=== PATIENT | female | born 1955 | race Caucasian/White ===

== ENCOUNTER 2017-11-09 20:38 | Inpatient (IN) | payer SELFPAY ==
[~2017-11-09] VITALS: Ht 157.5 cm; Wt 73.6 kg
[2017-11-09 20:43] VITALS: Ht 157.5 cm; Wt 73.6 kg
[2017-11-09 21:35] LABS: BASOPHIL % 0.4 % (0-2); PLATELET COUNT 340 x10^3mcL (130-400)
[2017-11-09 21:41] LABS: UA SPECIFIC GRAVITY 1.015 (1.005-1.035); microscopic required? YES; urine erythrocyte TRACE (NEGATIVE)
[2017-11-09 21:49] LABS: CALCIUM 8.9 mg/dL (8.5-10.1); CARBON DIOXIDE 27.8 mmol/L (21-32); CHLORIDE SERUM 103 mmol/L (98-107); CREATININE SERUM 0.8 mg/dL (0.6-1.0); GFR1 > 60 mL/min; GLUCOSE SERUM 123 mg/dL (74-106); POTASSIUM SERUM 3.8 mmol/L (3.5-5.1); SODIUM SERUM 140 mmol/L (136-145)
[2017-11-09 21:54] LABS: ALBUMIN 3.4 g/dL (3.4-5.0); ALKALINE PHOSPHATASE 116 U/L (46-116); ALT/SGPT 29 U/L (14-59); AST/SGOT 21 U/L (15-37); BILIRUBIN TOTAL 0.3 mg/dL (0.20-1.00); LIPASE 153 IU/L (73-393); TOTAL PROTEIN, SERUM 6.8 g/dL (6.4-8.2)
[2017-11-09 22:31] LABS: FREE T4 1.08 ng/dL (0.76-1.46)
[2017-11-10 04:14] LABS: T3 TOTAL 0.97 ng/mL
[2017-11-10 04:32] VITALS: BP 129/65
[2017-11-10 04:32] LABS: PHOSPHOROUS 4.1 mg/dL (2.5-4.9)
[2017-11-10 04:33] LABS: CHOLESTEROL/HDL RATIO 4.8
[2017-11-10 04:38] LABS: FREE T4 1.13 ng/dL (0.76-1.46); FREE THYROXINE INDEX 3.5 ug/dL (1.4-4.5); T4(THYROXINE) 10.3 ug/dL (4.7-13.3)
[2017-11-10] MEDS ORDERED: SYNTHROID0.075 MG PO (04:39)
[2017-11-10 09:22] VITALS: BP 116/53
[2017-11-10 09:57] LABS: AMPHETAMINE QUAL UR NONE DETECTED (NEG <=1000)
[2017-11-10 12:20] VITALS: BP 112/60
[2017-11-10 17:03] VITALS: BP 136/83
[2017-11-10 19:30] VITALS: BP 123/63
[2017-11-11 05:22] VITALS: BP 135/69
[2017-11-11 06:39] LABS: BASOPHIL % 0.4 % (0-2); PLATELET COUNT 333 x10^3mcL (130-400)
[2017-11-11 06:49] LABS: CALCIUM 8.8 mg/dL (8.5-10.1); CARBON DIOXIDE 27.5 mmol/L (21-32); CHLORIDE SERUM 105 mmol/L (98-107); CREATININE SERUM 0.8 mg/dL (0.6-1.0); GFR1 > 60 mL/min; GLUCOSE SERUM 110 mg/dL (74-106); POTASSIUM SERUM 3.9 mmol/L (3.5-5.1); SODIUM SERUM 139 mmol/L (136-145)
[2017-11-11 09:02] VITALS: BP 135/69
[2017-11-11 09:19] VITALS: BP 112/58
[2017-11-11] MEDS ORDERED: SIMETHICONE80 MG CH (13:07)
[2017-11-11] MEDS ORDERED: CARAFATE1 GM PO (13:08)
[2017-11-11] MEDS ORDERED: PRI20 PO (13:08)
[2017-11-11] MEDS ORDERED: MAC100 PO (13:10)
== END 2017-11-11 14:11 | disposition home or self-care (01) | DRG 392 ==
LOC: ED 20:38 → DU 11-10 03:14
PROVIDERS: Emergency Medicine; Family Medicine
DX: A08.4 Viral intestinal infection, unspecified (principal); N39.0 Urinary tract infection, site not specified; E44.1 Mild protein-calorie malnutrition; E03.9 Hypothyroidism, unspecified; K57.90 Diverticulosis of intestine, part unspecified, without perforation or abscess without bleeding; E78.5 Hyperlipidemia, unspecified; K21.9 Gastro-esophageal reflux disease without esophagitis; Z68.29 Body mass index [BMI] 29.0-29.9, adult
CPT/HCPCS: 83880; 84439; J0696; J2270; J2405; J3010; J7030; Q0092